=== PATIENT | male | born 1975 | race Caucasian/White ===

== ENCOUNTER 2018-03-14 11:01 | Inpatient (IN) | payer OTHER ==
[~2018-03-14] VITALS: Ht 180.3 cm; Wt 91.3 kg
[2018-03-14 11:23] VITALS: Ht 180.3 cm; Wt 91.3 kg
[2018-03-14 12:15] LABS: BASOPHIL % 0.7 % (0-2); PLATELET COUNT 232 x10^3mcL (130-400); RED CELL DISTRIBUTION WIDTH 14.3 % (11.5-14.5)
[2018-03-14 12:30] LABS: UA SPECIFIC GRAVITY 1.015 (1.005-1.035); microscopic required? YES; urine erythrocyte NEGATIVE (NEGATIVE)
[2018-03-14 12:47] LABS: CALCIUM 9.2 mg/dL (8.5-10.1); CARBON DIOXIDE 26.7 mmol/L (21-32); CHLORIDE SERUM 99 mmol/L (98-107); CREATININE SERUM 0.9 mg/dL (0.7-1.3); GFR1 > 60 mL/min; GLUCOSE SERUM 130 mg/dL (74-106); POTASSIUM SERUM 4.3 mmol/L (3.5-5.1); SODIUM SERUM 136 mmol/L (136-145)
[2018-03-14 12:52] LABS: ALKALINE PHOSPHATASE 100 U/L (46-116); ALT/SGPT 176 U/L (16-63); AST/SGOT 116 U/L (15-37); BILIRUBIN TOTAL 1.03 mg/dL (0.20-1.00); LIPASE 166 IU/L (73-393)
[2018-03-14 12:58] LABS: AMPHETAMINE QUAL UR NONE DETECTED (See below)
[2018-03-14 13:00] LABS: TOTAL PROTEIN, SERUM 9.6 g/dL (6.4-8.2)
[2018-03-14 14:57] LABS: MAGNESIUM 2.2 mg/dL (1.8-2.4)
[2018-03-14 15:51] VITALS: BP 135/101
[2018-03-14 20:46] VITALS: BP 133/95
[2018-03-15 05:57] VITALS: BP 125/81
[2018-03-15 06:40] LABS: CALCIUM 8.8 mg/dL (8.5-10.1); CARBON DIOXIDE 28.5 mmol/L (21-32); CHLORIDE SERUM 101 mmol/L (98-107); GFR1 > 60 mL/min; GLUCOSE SERUM 102 mg/dL (74-106); PHOSPHOROUS 3.4 mg/dL (2.5-4.9); POTASSIUM SERUM 3.9 mmol/L (3.5-5.1); SODIUM SERUM 136 mmol/L (136-145)
[2018-03-15 07:00] LABS: BASOPHIL % 0.3 % (0-2); PLATELET COUNT 201 x10^3mcL (130-400); RED CELL DISTRIBUTION WIDTH 13.9 % (11.5-14.5)
[2018-03-15 08:32] VITALS: BP 135/97
[2018-03-15 16:59] VITALS: BP 144/97
[2018-03-15 21:08] VITALS: BP 134/95
[2018-03-16 01:19] VITALS: BP 134/95
[2018-03-16 05:39] VITALS: BP 146/103
[2018-03-16 06:50] LABS: BASOPHIL % 0.3 % (0-2); PLATELET COUNT 203 x10^3mcL (130-400); RED CELL DISTRIBUTION WIDTH 14.1 % (11.5-14.5)
[2018-03-16 07:26] LABS: MAGNESIUM 2.1 mg/dL (1.8-2.4); PHOSPHOROUS 3.7 mg/dL (2.5-4.9)
[2018-03-16 07:36] LABS: CALCIUM 8.1 mg/dL (8.5-10.1); CHLORIDE SERUM 105 mmol/L (98-107); GFR1 > 60 mL/min; GLUCOSE SERUM 111 mg/dL (74-106); POTASSIUM SERUM 3.6 mmol/L (3.5-5.1); SODIUM SERUM 142 mmol/L (136-145)
[2018-03-16 07:50] VITALS: BP 144/94
[2018-03-16 13:23] LABS: BILIRUBIN DIRECT 0.39 mg/dL (0.0-0.2); BILIRUBIN TOTAL 1.31 mg/dL (0.20-1.00); TOTAL PROTEIN, SERUM 7.6 g/dL (6.4-8.2)
[2018-03-16 13:24] LABS: ALBUMIN 3.1 g/dL (3.4-5.0)
[2018-03-16 15:54] VITALS: BP 144/94
[2018-03-16 20:45] VITALS: BP 158/104
[2018-03-17 05:39] VITALS: BP 148/97
[2018-03-17 06:33] LABS: BASOPHIL % 0.3 % (0-2); CALCIUM 8.7 mg/dL (8.5-10.1); CARBON DIOXIDE 26.1 mmol/L (21-32); CHLORIDE SERUM 104 mmol/L (98-107); CREATININE SERUM 0.9 mg/dL (0.7-1.3); GFR1 > 60 mL/min; GLUCOSE SERUM 99 mg/dL (74-106); MAGNESIUM 2.1 mg/dL (1.8-2.4); PHOSPHOROUS 2.5 mg/dL (2.5-4.9); PLATELET COUNT 176 x10^3mcL (130-400); POTASSIUM SERUM 3.6 mmol/L (3.5-5.1); RED CELL DISTRIBUTION WIDTH 12.7 % (11.5-14.5); SODIUM SERUM 139 mmol/L (136-145)
[2018-03-17 08:32] VITALS: BP 145/92
[2018-03-17] MEDS ORDERED: FLA500 PO (13:03)
[2018-03-17] MEDS ORDERED: REGLAN10 M1 PO (13:17)
[2018-03-17] MEDS ORDERED: IBUPROFEN400 MG PO (13:17)
[2018-03-17 13:35] VITALS: BP 145/92
== END 2018-03-17 14:45 | disposition home or self-care (01) | DRG 224 ==
LOC: ED 11:01 → MU 13:58
PROVIDERS: Emergency Medicine; Surgery; ADMIT Internal Medicine
PROC: 0D9670Z Drainage of Stomach with Drainage Device, Via Natural or Artificial Opening (ICD-10-PCS; 2018-03-15)
PROC: 0DNU0ZZ Release Omentum, Open Approach (ICD-10-PCS; principal; 2018-03-15 12:30)
DX: K56.50 Intestinal adhesions [bands], unspecified as to partial versus complete obstruction (principal); N17.0 Acute kidney failure with tubular necrosis; K70.10 Alcoholic hepatitis without ascites; K70.30 Alcoholic cirrhosis of liver without ascites; K65.9 Peritonitis, unspecified; E86.0 Dehydration; J45.909 Unspecified asthma, uncomplicated; F10.10 Alcohol abuse, uncomplicated; I10 Essential (primary) hypertension; K52.9 Noninfective gastroenteritis and colitis, unspecified; Y90.0 Blood alcohol level of less than 20 mg/100 ml; Z88.6 Allergy status to analgesic agent
CPT/HCPCS: G0480; J0690; J1170; J1885; J2001; J2175; J2250; J2270; J2405; J2765; J3010; J7030; J7613; Q0092; Q9967

== ENCOUNTER 2018-10-01 09:11 | Inpatient (IN) | payer OTHER ==
[~2018-10-01] VITALS: Ht 175.3 cm; Wt 93.4 kg
[~2018-10-01 09:11] MED LIST: FLA500 PO; IBUPROFEN400 MG PO; REGLAN10 M1 PO
[2018-10-01 09:18] VITALS: Ht 175.3 cm; Wt 93.4 kg
--- NOTE | 2018-10-01 09:19 | NUR ---
EKG IN PROGRESS
--- NOTE | 2018-10-01 09:20 | NUR ---
PT TO ROOM 15; AWARE; MARK,RN AWARE OF PT PRIMARY RN
--- NOTE | 2018-10-01 09:25 | NUR ---
PER PT HAS HAD INTERMITTENT CHEST TIGHTNESS SINCE YESTERDAY. 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 PT STS THAT HE WAS HAVING SOME DIZZINESS OFF AND ON. PT STS THAT HE HAS NAUSEA EVERY MORNING FOR MONTHS. PT STS THAT HE IS HAVING WEAKNESS WITH BLURRY VISION. PT STS HE DID HAVE ABDOMINAL PAIN ONE WEEK AGO BUT CURRENTLY HAS NO ABDOMINAL PAIN. 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 NO FACIAL DROOP NOTED. NO NEROLOGIVAL DEFICITS NOTED. PT STS HE HAS NO RADIATING CHEST TIGHTNESS. NO DISTRESS NOTED. PT PLACED ON FULL CM. XRAY AT BEDSIDE. WILL CONTINUE TO MONITOR.
--- NOTE | 2018-10-01 09:38 | NUR ---
DR. WHATLEY AT BEDSIDE FOR MSE.
[2018-10-01 10:44] LABS: T3 TOTAL 1.31 ng/mL
--- NOTE | 2018-10-01 11:18 | NUR ---
PT IN POSITION OF COMFORT. MEDICATED ORDRED. VSS. NO DISTRESS NOTED. WILL CONTINUE TO MONITOR.
[2018-10-01 11:37] LABS: CALCIUM 9.2 mg/dL (8.5-10.1); CARBON DIOXIDE 23.5 mmol/L (21-32); CHLORIDE SERUM 101 mmol/L (98-107); GFR1 > 60 mL/min; GLUCOSE SERUM 94 mg/dL (74-106); POTASSIUM SERUM 3.7 mmol/L (3.5-5.1); SODIUM SERUM 135 mmol/L (136-145)
[2018-10-01 11:39] LABS: ALBUMIN 3.7 g/dL (3.4-5.0); ALKALINE PHOSPHATASE 94 U/L (46-116); ALT/SGPT 192 U/L (16-63); AST/SGOT 142 U/L (15-37); BILIRUBIN TOTAL 1.74 mg/dL (0.20-1.00); HDL CHOLESTEROL 52 mg/dL (40-60); LIPASE 97 IU/L (73-393); TRIGLYCERIDES 62 mg/dL (<150)
[2018-10-01 11:43] LABS: CHOLESTEROL 224 mg/dL (<200); CHOLESTEROL/HDL RATIO 4.3; TOTAL PROTEIN, SERUM 8.6 g/dL (6.4-8.2)
[2018-10-01 11:53] LABS: FREE T4 1.29 ng/dL (0.76-1.46); FREE THYROXINE INDEX 4.3 ug/dL (1.4-4.5)
--- NOTE | 2018-10-01 12:21 | NUR ---
REPROT GIVEN TO ALIYA SNYDER, TO ASSUME CARE OF PT.
[2018-10-01 13:09] LABS: MAGNESIUM 2.1 mg/dL (1.8-2.4); PHOSPHOROUS 2.7 mg/dL (2.5-4.9)
[2018-10-01 13:32] VITALS: BP 134/93
[2018-10-01 14:11] LABS: microscopic required? NO
[2018-10-01 14:51] LABS: UA SPECIFIC GRAVITY <=1.005 (1.005-1.035); urine erythrocyte NEGATIVE (NEGATIVE)
[2018-10-01 15:03] LABS: AMPHETAMINE QUAL UR NONE DETECTED (See below)
--- NOTE | 2018-10-01 15:25 | NUR ---
PT GETTING ECHO AT THIS TIME. NO ACUTE DISTRESS OR DISCOMFORT NOTED AT THIS TIME SAFETY MAINTAINED.
--- NOTE | 2018-10-01 16:24 | NUR ---
PT COMPLAINING OF HEADACHE 09/28. TYLENOL ADMINISTERED ORDERED PRN (SEE EMAR). DENIES CHEST PAIN AT THIS TIME. NO ACUTE DISTRESS. WILL CONTINUE TO MONITOR.
--- NOTE | 2018-10-01 17:13 | NUR ---
PT RESTING COMFORTABLY AT THIS TIME. PT REPORTS RELIEF FROM HEADACHE. 04/28 AT THIS TIME. WILL CONTINUE TO MONITOR.
[2018-10-01 17:57] VITALS: BP 137/87
--- NOTE | 2018-10-01 18:35 | NUR ---
PT STABLE AT THIS TIME. ALL NEEDS TENDED TO THROUGHOUT SHIFT. 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 SAFETY MEASURES MAINTAINED. NO ACUTE DISTRESS AT THIS TIME.
--- NOTE | 2018-10-01 20:00 | NUR ---
Awake and verbally responsive. No respiratory distress noted on room air. Denies pain at this time. Denies n/v. Ambulatory. Will cont.to monitor. Call light within reach.
[2018-10-01 21:30] VITALS: BP 127/81
--- NOTE | 2018-10-02 04:13 | NUR ---
Afebrile. No significant change in condition noted. Denies chest pain. In no apparent distress.
[2018-10-02 05:30] VITALS: BP 138/86
[2018-10-02 06:59] LABS: BASOPHIL % 0.9 % (0-2); PLATELET COUNT 152 x10^3mcL (130-400); RED CELL DISTRIBUTION WIDTH 14.3 % (11.5-14.5)
[2018-10-02 07:08] LABS: CALCIUM 8.5 mg/dL (8.5-10.1); CARBON DIOXIDE 23.4 mmol/L (21-32); CHLORIDE SERUM 104 mmol/L (98-107); CREATININE SERUM 0.9 mg/dL (0.7-1.3); GFR1 > 60 mL/min; GLUCOSE SERUM 89 mg/dL (74-106); SODIUM SERUM 137 mmol/L (136-145)
--- NOTE | 2018-10-02 07:50 | NUR ---
ALERT AND ORIENTED. BREATHING FREELY ON RA. INTERMITTENT CHEST PAIN /, STABBING. TELE # 26 SR W ELEVATED T WAVE. NS INFUSING 100 CC HOUR. INDEPENDENT W ADL'S. WEARING SCD'S. CALL LIGHT WITHIN REACH. US ABD COMPLETED.
[2018-10-02 08:16] VITALS: BP 137/95
--- NOTE | 2018-10-02 10:04 | NUR ---
RECEIVED RETURN CALL FROM . INFORMED HER OF US ABD RESULTS. COPY IS INPT CHART.
[2018-10-02 12:42] VITALS: BP 147/98
[2018-10-02 13:39] VITALS: BP 147/98
--- NOTE | 2018-10-02 14:19 | NUR ---
DC'D TO HOME. IV AND SL DC'D INTACT. TELE # 26 RETURNED TO TELE STATION. PT HAS [facility] FOR SUNDAY W PCP. ALL DC INSTRUCTIONS REVIEWED WITH AND SIGNED BY PT.
== END 2018-10-02 14:15 | disposition home or self-care (01) | DRG 203 ==
LOC: ED 09:11 → DU 11:30
PROVIDERS: Specialist; ADMIT Internal Medicine
DX: R07.89 Other chest pain (principal); Z68.41 Body mass index [BMI] 40.0-44.9, adult; F15.10 Other stimulant abuse, uncomplicated; F10.10 Alcohol abuse, uncomplicated; E78.5 Hyperlipidemia, unspecified; T43.625A Adverse effect of amphetamines, initial encounter; T43.615A Adverse effect of caffeine, initial encounter; I10 Essential (primary) hypertension; T51.0X1A Toxic effect of ethanol, accidental (unintentional), initial encounter; Y90.0 Blood alcohol level of less than 20 mg/100 ml; R74.0 Nonspecific elevation of levels of transaminase and lactic acid dehydrogenase [LDH]; Z88.5 Allergy status to narcotic agent; Y92.89 Other specified places as the place of occurrence of the external cause
CPT/HCPCS: 83880; 84439; G0378; J7030; Q0092

== ENCOUNTER 2018-10-08 15:51 | Emergency (ER) | payer OTHER ==
[~2018-10-08] VITALS: Ht 180.3 cm; Wt 91.2 kg
[2018-10-08 15:58] VITALS: Ht 180.3 cm; Wt 91.2 kg
[2018-10-08 20:25] VITALS: BP 133/82
== END 2018-10-08 20:25 | disposition home or self-care (01) ==
LOC: ED 15:51
DX: S60.452A Superficial foreign body of right middle finger, initial encounter (principal); I10 Essential (primary) hypertension; Z88.0 Allergy status to penicillin; W22.8XXA Striking against or struck by other objects, initial encounter; Y93.89 Activity, other specified; Y92.89 Other specified places as the place of occurrence of the external cause; Y99.8 Other external cause status
CPT/HCPCS: J2001